=== PATIENT | male | born 1975 | race Caucasian/White ===

== ENCOUNTER 2017-12-03 16:32 | Emergency (ER) | payer OTHER ==
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
[2017-12-03] MEDS ORDERED: CEPHALEXIN 500 MG CAP PO ONE (17:58)
[2017-12-03] MEDS ORDERED: OXYCODONE/APAP 5/325 TAB PO ONE (17:58)
[2017-12-03 18:49] VITALS: BP 108/77
== END 2017-12-03 18:47 | disposition home or self-care (01) ==
PROC: 0HQGXZZ Repair Left Hand Skin, External Approach (ICD-10-PCS; principal; 2017-12-03)
DX: S62.633A Displaced fracture of distal phalanx of left middle finger, initial encounter for closed fracture (principal); S62.635A Displaced fracture of distal phalanx of left ring finger, initial encounter for closed fracture; S61.213A Laceration without foreign body of left middle finger without damage to nail, initial encounter; S61.215A Laceration without foreign body of left ring finger without damage to nail, initial encounter; S61.217A Laceration without foreign body of left little finger without damage to nail, initial encounter; Z87.891 Personal history of nicotine dependence; V89.0XXA Person injured in unspecified motor-vehicle accident, nontraffic, initial encounter; Y99.8 Other external cause status